=== PATIENT | male | born 1930 | race Two or more races ===

== ENCOUNTER 2016-07-30 09:35 | Outpatient (CLI) ==
[2016-07-30 09:41] LABS: BILIRUBIN,URINE Negative (NEGATIVE); KETONES,URINE Negative (NEGATIVE); LEUKOCYTE ESTERASE ,URINE Trace (NEGATIVE); NITRITE,URINE Negative (NEGATIVE); PH,URINE 5.5 (5-9); PROTEIN,URINE 1+ (NEGATIVE); URINE, BLOOD 3+ (NEGATIVE)
[2016-07-30 09:53] LABS: ADD URINE MICROSCOPIC YES
[2016-07-30 09:54] LABS: BACTERIA,URINE 3+ (NOT PRESENT)
== END 2016-07-30 09:36 | disposition home or self-care (01) ==
LOC: NONPT 09:35
PROVIDERS: ATTEND Family Medicine
DX: R33.9 Retention of urine, unspecified (principal)
CPT/HCPCS: 81001; 87086; 87186

== ENCOUNTER 2016-07-31 11:31 | Outpatient (CLI) | END 2016-07-31 11:32 | LOC: AMBL 11:31 | PROVIDERS: ATTEND Internal Medicine | DX: R31.9 Hematuria, unspecified (principal); F03.90 Unspecified dementia, unspecified severity, without behavioral disturbance, psychotic disturbance, mood disturbance, and anxiety; R53.1 Weakness ==